=== PATIENT | female | born 1985 | race Caucasian/White ===

== ENCOUNTER → 2022-12-16 09:44 | Outpatient (CLI) | payer OTHER, SELFPAY ==
[2022-12-16 10:51] LABS: Add Manual Diff / Slide Review NO; Basophils Absolute Auto 0 /uL (0-100); Basophils Percent Auto 0.5 % (0-2); Eosinophils Absolute Auto 100 /uL (0-450); Eosinophils Percent Auto 1.6 % (2-4); Lymphocytes Absolute Auto 1400 /uL (1100-4500); Lymphocytes Percent Auto 16.8 % (25-40); Mean Corpuscular HGB Conc 35.3 % (30-36); Mean Corpuscular Hemoglobin 31.6 PG (26-34); Mean Corpuscular Volume 89.3 fL (80-100); Monocytes Absolute Auto 700 /uL (0-900); Neutrophils Absolute Auto 6200 /uL (1500-7000); Neutrophils Percent Auto 73.1 % (50-75); Platelet Count 227 X10^3/uL (150-400); Red Blood Cell Count 3.81 X10^6/uL (4.0-5.2); Red Cell Distribution Width 12.6 % (11.6-14.8); White Blood Cell Count 8.5 X10^3/uL (4.5-11.0)
[2022-12-17 09:09] LABS: RPR Screen Non Reactive (Non Reactive)
[2022-12-17 10:13] LABS: Varicella IgG Antibody 985 index (Immune >165)
[2022-12-17 15:56] LABS: Hepatitis B Surface Antigen NEGATIVE s/c (NEGATIVE)
[2022-12-17 16:13] LABS: Hep C Virus Ab w/Reflex Quant NEGATIVE s/c (NEGATIVE)
[2022-12-17 16:24] LABS: HIV 1 & 2 Ab/Ag 4th Gen Combo NEGATIVE (NEGATIVE)
== END ==
PROVIDERS: Referring Provider Specialist; Visit Provider Specialist
DX: Z34.81 Encounter for supervision of other normal pregnancy, first trimester (principal)
CPT/HCPCS: 36415; 80055; 86787; 86803; 86850; 86900; 86901; 87086; 87389

== ENCOUNTER → 2023-02-11 10:34 | Outpatient (CLI) | payer OTHER, SELFPAY ==
[2023-02-13 20:12] LABS: AFP Value 50.6 ng/mL (.); Gest Age on Col Date 16.6 weeks (.); Insulin Dep Diabetes No (.); OSBR Risk 1IN 4399 (.); Results Report (.); Test Results *Screen Negative* (.)
== END ==
PROVIDERS: Referring Provider Student in an Organized Health Care Education/Training Program; Visit Provider Student in an Organized Health Care Education/Training Program
DX: Z34.82 Encounter for supervision of other normal pregnancy, second trimester (principal); Z3A.16 16 weeks gestation of pregnancy
CPT/HCPCS: 36415; 82105

== ENCOUNTER → 2023-03-01 10:17 | Outpatient (CLI) | payer OTHER, SELFPAY ==
--- NOTE | 2023-03-01 10:18 | DI.US.S_ITS ---
PROCEDURE: US OB >= 14 WEEKS FETUS INDICATIONS: 20 week Anatomy Scan OUTSIDE/PRIOR DATING DATA: Last menstrual period (LMP): 10/18/2022 LMP-based estimated date of delivery (YAHIR): 07/25/2023 First dating scan (date and location): 12/16/2022 at [facility] Estimated date of delivery (YAHIR) from first dating scan: 07/22/2023 The calculations are made using the clinical YAHIR of 07/25/2023 TECHNIQUE: Real-time scanning was performed of the fetus, with image documentation and biometric measurements. Endovaginal scanning: Not performed COMPARISON: [facility], , US OB <= 14 WEEKS FETUS, 12/16/2022, 9:30. FINDINGS: General: A single living intrauterine gestation is present. Presentation: Transverse Placenta: Placental position is posterior left. The placenta is low lying with the lower placental margin at the level of the internal cervical os. Amniotic fluid index: 14.0 cm, normal range is 5-24 cm. Single deepest vertical pocket is 4.4 cm. heart rate: 144 beats per minute. Maternal cervical canal: 4.2 cm long. Normal lower limit is 2.5 cm. biometrics: Biparietal diameter: 4.2 cm, 18 weeks 5 days Head circumference: 16.5 cm, 19 weeks 1 day Abdominal circumference: 13.8 cm, 19 weeks 1 day Femur length: 3.1 cm, 19 weeks 5 days Clinically estimated gestational age: 19 weeks 1 day Composite gestational age from present scan: 19 weeks 1 day Estimated weight and percentile: 290 grams, 61st percentile Anatomic survey: Neuro: Ventricles are non-dilated at less than 10 mm. Cisterna magna is normal at 3-11 mm. Cerebellum is normal in size and morphology. Nuchal skin fold: Normal at less than 6 mm between 14-21 weeks gestational age. Face: Nose and lips, facial profile are normal. Spine: No evidence for spina bifida. Heart: 4-chambered heart is present, with normal ventricular outflow tracts. A nonspecific do not focus is seen within the left ventricle. Diaphragm: Diaphragm is intact. Stomach: Left-sided stomach is present. Kidneys: No hydronephrosis. Normal is less than 5 mm in 2nd trimester, less than 7 mm in 3rd trimester. Cord: 3-vessel cord has orthotopic insertion. Bladder: Normal in size. Extremities: All 4 extremities identified. IMPRESSION: 1. Single live intrauterine . size is concordant with clinical dates. 2. Low lying placenta. Recommend third trimester follow-up exam to exclude placenta previa. 3. Echogenic intracardiac focus: 1.4-1.8 fold likelihood of Down syndrome. If isolated finding, consider aneuploidy screening with cell-free DNA. If aneuploidy screen is negative, no further evaluation needed. Anatomic survey otherwise is normal. 4. anatomic survey is otherwise within normal limits. We strive to produce accurate, complete, and clear reports of imaging services. To assist us in improving patient care, this report was composed using standard report templates and voice recognition software. Therefore, it may contain abnormal punctuation, insertions and/or omissions. Occasional wrong-word or sound-alike substitutions may occur. Though we review the report and make efforts to correct it, we do recommend that the report be read carefully in proper context to recognize any text inaccuracies. Approved by: Gideon Ordonez M.D. on 03/01/2023 at 16:02
== END ==
PROVIDERS: Referring Provider Student in an Organized Health Care Education/Training Program; Visit Provider Student in an Organized Health Care Education/Training Program
DX: Z36.89 Encounter for other specified antenatal screening (principal); O44.42 Low lying placenta NOS or without hemorrhage, second trimester; Z3A.19 19 weeks gestation of pregnancy
CPT/HCPCS: 76811